=== PATIENT | female | born 1965 | race Caucasian/White ===

== ENCOUNTER 2019-05-26 16:20 | Inpatient (IN) | payer BC ==
[~2019-05-26] VITALS: Ht 152.4 cm; Wt 49.9 kg
[2019-05-26 16:24] VITALS: BP_SYST 108
--- NOTE | 2019-05-26 16:25 | NUR ---
Patient to ER bed 4 to gown for evaluation. Side rails up.
[2019-05-26] MEDS ORDERED: INSULIN REGULAR, HUMAN 10 UNITS/0.1 ML INJ IVP ONE (16:30)
[2019-05-26] MEDS ORDERED: NACL 0.9% 2,000 ML IV ONE (16:30)
--- NOTE | 2019-05-26 16:30 | NUR ---
PT CAME TO ER WITH HYPERGLYCEMIA. BLOOD GLUCOSE 500 IN FIELD AND 600 UPON ARRIVAL.
--- NOTE | 2019-05-26 16:35 | NUR ---
ER at bedside examining patient.
--- NOTE | 2019-05-26 17:15 | NUR ---
PT IN Tammi[place]UNGIE TOLERATED MEDICATION. AWAITING LAB RESULTS
[2019-05-26 17:30] LABS: BASOPHILS # (AUTO) 0.2 K/uL (0.0-0.2); BASOPHILS % (AUTO) 1.1 % (0.0-2.0); EOSINOPHILS # (AUTO) 0.3 K/uL (0.0-0.4); EOSINOPHILS % (AUTO) 1.8 % (0.0-4.0); HEMATOCRIT 46.7 % (36-48); HEMOGLOBIN 15.6 g/dL (12.0-16.0); LYMPHOCYTES # (AUTO) 1.3 K/uL (1.0-5.5); LYMPHOCYTES % (AUTO) 8.1 % (20.5-51.5); MEAN CORPUSCULAR HEMOGLOBIN 33 pg (27-31); MEAN CORPUSCULAR HGB CONC 34 % (32-36); MEAN CORPUSCULAR VOLUME 98 fL (79.0-98.0); MONOCYTES # (AUTO) 0.3 K/uL (0.0-1.0); MONOCYTES % (AUTO) 1.7 % (1.7-9.3); NEUTROPHILS # (AUTO) 14.3 K/uL (1.8-7.7); NEUTROPHILS % (AUTO) 87.3 % (40.0-70.0); PLATELET COUNT (AUTO) 379 K/uL (130-430); RED BLOOD CELL COUNT(AUTO) 4.78 MIL/uL (4.2-6.2); RED CELL DISTRIBUTION WIDTH 13.1 % (9.0-15.0); WHITE BLOOD COUNT (AUTO) 16.4 K/uL (4.8-10.8)
[2019-05-26 17:56] LABS: ALANINE AMINOTRANSFERASE 18 U/L (12-78); ALBUMIN 3.6 g/dL (3.4-4.8); ANION GAP 33 (5-15); ASPARTATE AMINOTRANSFERASE 22 U/L (10-37); CALCIUM 8.7 mg/dL (8.4-11.0); CREATININE 2.09 mg/dL (0.55-1.30); FREE T4 (FREE THYROXINE) 0.7 ng/dl (0.8-1.5); POTASSIUM 3.2 mmol/L (3.5-5.1); SODIUM SERUM 123 mmol/L (136-145); TOTAL BILIRUBIN 0.7 mg/dL (0.0-1.0); UREA NITROGEN, BLOOD 57 mg/dL (8-21)
[2019-05-26 18:03] LABS: CHLORIDE 85 mmol/L (98-107)
[2019-05-26 18:04] LABS: GFR AFRICAN AMERICAN 32 mL/min (>90); GLUCOSE 812 mg/dL (70-99)
[2019-05-26 18:05] LABS: ALCOHOL, BLOOD < 3 mg/dL (<10)
[2019-05-26 18:10] LABS: INR 1.1 (0.8-1.2); PROTHROMBIN TIME 11.4 SECS (9.5-12.5)
[2019-05-26] MEDS ORDERED: LEVOFLOXACIN 500 MG/D5W 100 ML IV ONE (18:15)
[2019-05-26] MEDS ORDERED: POTASSIUM CHLORIDE 40 MEQ in NS 250 ML IV ONE (18:15)
[2019-05-26] MEDS ORDERED: NACL 0.9% 1,000 ML IV ONE (18:15)
[2019-05-26] MEDS ORDERED: POTASSIUM CHLORIDE 20 MEQ/PKT PACKET PO ONE (18:15)
--- NOTE | 2019-05-26 18:30 | NUR ---
PT IN BED WITH FAMILY AT BEDSIDE. VSS STABLE AT THIS TIME.
[2019-05-26 18:31] LABS: ACETONE, SERUM LARGE (NEGATIVE)
[2019-05-26 18:42] LABS: BILIRUBIN,URINE 1+ (NEGATIVE); BLOOD, URINE 2+ (NEGATIVE); COLOR,URINE YELLOW (YELLOW); GLUCOSE,URINE 3+ (NEGATIVE); KETONES,URINE 3+ (NEGATIVE); LEUKOCYTE ESTERASE ,URINE NEGATIVE (NEGATIVE); NITRITE, URINE NEGATIVE (NEGATIVE); PH,URINE 5.5 (5.0-8.0); PROTEIN URINE 2+ (NEGATIVE); UROBILINOGEN,URINE 0.2 (0.2-1.0)
[2019-05-26 18:50] LABS: CLARITY/URINE SLIGHTLY HAZY (CLEAR)
[2019-05-26 18:57] LABS: BARBITURATE, URINE NEGATIVE (NEG <=200); BENZODIAZEPINE, URINE NEGATIVE (NEG <=150); CANNABINOID, URINE NEGATIVE (NEG <=50); COCAINE, URINE NEGATIVE (NEG <=150); METHAMPHETAMINES SCREEN,URINE NEGATIVE (NEG <=500); OPIATE, URINE NEGATIVE (NEG <=100); PHENCYCLIDINE SCREEN,URINE NEGATIVE (NEG <=25); UR TRICYCLIC ANTIDEPRESSANTS NEGATIVE (NEG <=300); URINE AMPHETAMINE NEGATIVE (NEG <=500); URINE METHADONE NEGATIVE (NEG <=200); URINE OXYCODONE SCREEN NEGATIVE (NEG <=100); URINE PROPOXYPHENE SCREEN NEGATIVE (NEG <=300)
[2019-05-26 18:58] LABS: BACTERIA,URINE FEW /HPF (None Seen); COARSE GRANULAR CASTS,URINE 0-10 /LPF (None Seen); FINE GRANULAR CASTS,URINE 0-10 /LPF (None Seen); MUCUS,URINE 1+ /LPF (None Seen); URINE AMORPHOUS URATE 3+ /HPF (None Seen); WBC,URINE 0-3 /HPF (0-3)
--- NOTE | 2019-05-26 19:25 | NUR ---
Patient will be admitted to [facility]. Admitted to ICU unit. Will go to room ICU 2. Belongings list completed. Complete and up to date summary report printed. SBAR report to be given at bedside with opportunity for questions. BEDSIDE REPORT
[2019-05-26] MEDS ORDERED: NACL 0.9% 500 ML IV ONE (19:30)
--- NOTE | 2019-05-26 19:54 | NUR ---
ER ADMISSION Pt admitted to ICU-2 via gurney accompanied by ER ACLS staff, and family. IVF infusing. Pt on RA O2 saturation 99%. IV site present RAC 20ga, started by ER staff, no redness or swelling noted @ site. Skin intact.
[2019-05-26 20:00] VITALS: BP_SYST 110
[2019-05-26] MEDS ORDERED: INSULIN REGULAR, HUMAN 100 UNITS in NS 99 ML IV PRN ×2 (20:34)
[2019-05-26] MEDS ORDERED: DEXTROSE 50% JECT 50 ML DISP.SYRIN IVP PRN ×2 (20:45)
--- NOTE | 2019-05-26 20:45 | NUR ---
IV PLACEMENT: # 20 gauge angiocath placed to right forearm. Use of asceptic technique. Opsite placed over site. Blood return noted. Flushed with 5 cc of normal saline. No evidence of infiltration noted. Patient tolerated well.
[2019-05-26 21:00] VITALS: BP_SYST 105
[2019-05-26] MEDS ORDERED: NACL 0.9% 1,000 ML IV SCH (21:45)
[2019-05-26] MEDS ORDERED: THIAMINE HCL 100 MG in NS 50 ML IV ONE (21:45)
[2019-05-26] MEDS ORDERED: LORazepam 2 MG/ML VIAL IVP PRN (21:45)
[2019-05-26 22:00] VITALS: BP_SYST 118
[2019-05-26] MEDS ORDERED: ACETAMINOPHEN 325 MG TABLET PO PRN (22:00)
[2019-05-26] MEDS ORDERED: ONDANSETRON HCL 4 MG/2 ML VIAL IVP PRN (22:15)
--- NOTE | 2019-05-26 22:30 | NUR ---
COLLINS CATH: # 16 FR Collins catheter with 10 cc bulb inserted with use of sterile technique. Bulb inflated with 10 cc sterile water. Immediate return of 50 cc yellow urine noted. Bedside drainage bag placed below level of bladder. Pt tolerated procedure well.
--- NOTE | 2019-05-26 22:30 | NUR ---
DR NIMESH Mendes here evaluating patient.
--- NOTE | 2019-05-26 22:55 | NUR ---
PAGED DR. ROGER'S EXCHANGE DR. LOZANO EQUIPMENT SERVICE LEAD [phone] SPOKE WITH MOUNA
[2019-05-26 23:00] VITALS: BP_SYST 112
[2019-05-26 23:30] LABS: CHLORIDE 106 mmol/L (98-107); CREATININE 1.27 mg/dL (0.55-1.30); GLUCOSE 355 mg/dL (70-99); POTASSIUM 3.5 mmol/L (3.5-5.1); SODIUM SERUM 136 mmol/L (136-145); UREA NITROGEN, BLOOD 46 mg/dL (8-21)
[2019-05-26] MEDS ORDERED: LR 1,000 ML IV SCH (23:30)
[2019-05-26 23:44] LABS: ACETONE, SERUM MODERATE (NEGATIVE)
[2019-05-26 23:46] LABS: ANION GAP 25 (5-15)
[2019-05-27] VITALS (24 sets, daily range): BP systolic 88–130
[2019-05-27] LABS: CALCIUM 6.8 mg/dL (8.4-11.0)
[2019-05-27] MEDS ORDERED: THIAMINE HCL 100 MG/ML VIAL ONE (00:18)
--- NOTE | 2019-05-27 00:22 | NUR ---
MD TOLU BEAVERS'S EXCHANGE [phone] SPOKE TO MELITA
[2019-05-27] MEDS ORDERED: SODIUM BICARBONATE 8.4% JECT 100 MEQ in D5W 1,000 ML IV SCH (00:30)
[2019-05-27] MEDS ORDERED: POTASSIUM CHLORIDE 20 MEQ TAB.PRT.SR PO ONE (00:30)
[2019-05-27] MEDS ORDERED: INSULIN REGULAR, HUMAN 100 UNITS in NS 99 ML IV PRN ×4 (00:31→11:45)
[2019-05-27] MEDS ORDERED: cefTRIAXone 1 GM IVPB PREMIX 50 ML IV ONE (00:38)
--- NOTE | 2019-05-27 01:00 | NUR ---
Received patient after report from Amena SALDAÑA charge. Patient resting with eyes closed but responding to verbal commands. Finger stick Q 1 hr, patient compliant with treatment. IV fluids and insulin drip infusing to peripheral IV; no signs of infiltration noted. will continue to monitor as per MD orders.
[2019-05-27] MEDS ORDERED: SODIUM BICARBONATE 8.4% JECT 50 MEQ/50 ML SYRINGE ONE (01:07)
[2019-05-27] MEDS: cefTRIAXone 1 GM in D5W 50 ML IV SCH ×2 (02:00→21:05)
[2019-05-27] MEDS: LR 1,000 ML IV SCH ×2 (02:24→06:16)
[2019-05-27] MEDS: CALCIUM CARBONATE 500 MG/ TAB.CHEW PO SCH ×4 (02:29→20:52)
[2019-05-27] MEDS: CHOLECALCIFEROL (VITAMIN D3) 2,000 UNIT TABLET PO SCH ×2 (02:31→09:03)
[2019-05-27 05:28] LABS: BASOPHILS % (AUTO) 0.3 % (0.0-2.0); EOSINOPHILS % (AUTO) 0.1 % (0.0-4.0); HEMOGLOBIN 13.1 g/dL (12.0-16.0); LYMPHOCYTES # (AUTO) 1.8 K/uL (1.0-5.5); LYMPHOCYTES % (AUTO) 18.4 % (20.5-51.5); MEAN CORPUSCULAR HEMOGLOBIN 33 pg (27-31); MEAN CORPUSCULAR HGB CONC 35 % (32-36); MEAN CORPUSCULAR VOLUME 92 fL (79.0-98.0); MONOCYTES # (AUTO) 1.2 K/uL (0.0-1.0); MONOCYTES % (AUTO) 12.1 % (1.7-9.3); NEUTROPHILS # (AUTO) 6.8 K/uL (1.8-7.7); NEUTROPHILS % (AUTO) 69.1 % (40.0-70.0); PLATELET COUNT (AUTO) 224 K/uL (130-430); RED BLOOD CELL COUNT(AUTO) 4.02 MIL/uL (4.2-6.2); RED CELL DISTRIBUTION WIDTH 12.9 % (9.0-15.0); WHITE BLOOD COUNT (AUTO) 9.8 K/uL (4.8-10.8)
[2019-05-27 05:44] LABS: ALANINE AMINOTRANSFERASE 16 U/L (12-78); ALBUMIN 2.9 g/dL (3.4-4.8); ANION GAP 20 (5-15); ASPARTATE AMINOTRANSFERASE 20 U/L (10-37); CALCIUM 7.7 mg/dL (8.4-11.0); CHLORIDE 103 mmol/L (98-107); CHOLESTEROL 115 mg/dL (<200); CREATININE 1.12 mg/dL (0.55-1.30); GLUCOSE 187 mg/dL (70-99); HDL CHOLESTEROL 35 mg/dL (>55); LDL CHOLESTEROL 46 mg/dL (<100); LIPASE 1005 U/L (73-393); POTASSIUM 3.2 mmol/L (3.5-5.1); SODIUM SERUM 135 mmol/L (136-145); TOTAL BILIRUBIN 0.4 mg/dL (0.0-1.0); TRIGLYCERIDES 123 mg/dL (30-150); UREA NITROGEN, BLOOD 36 mg/dL (8-21)
[2019-05-27 05:47] LABS: GFR AFRICAN AMERICAN 65 mL/min (>90)
[2019-05-27 05:48] LABS: PHOSPHORUS 0.4 mg/dL (2.7-4.5)
[2019-05-27 06:03] LABS: ACETONE, SERUM SMALL (NEGATIVE)
--- NOTE | 2019-05-27 06:53 | NUR ---
FAMILY INFORMATION Daughter wanted to leave cell phone information: Eli Ortiz
[2019-05-27] MEDS ORDERED: K PHOS 30 MM in NS 250 ML IV ONE (07:15)
--- NOTE | 2019-05-27 07:40 | NUR ---
AM ASSESSMENT Pt received from night RN using SBAR. Pt resting in bed with eyes closed. pt is easily awaken to light tactile stimuli. Vital signs stable. Insulin drip @ 3 unit/hr. Galvan cath draining light yellow urine to gravity. No complaints of pain at this time.
--- NOTE | 2019-05-27 08:20 | NUR ---
ECHO master certified rv technician at bedside with pt
--- NOTE | 2019-05-27 08:25 | NUR ---
MD Dr. Amaro at bedside with pt.
[2019-05-27] MEDS ORDERED: chlordiazePOXIDE HCL 25 MG CAPSULE PO SCH ×2 (09:00→11:30)
[2019-05-27] MEDS: MULTIVITS,CA,MINERALS/IRON/FA 1 TABLET PO SCH (09:03)
[2019-05-27] MEDS: FOLIC ACID 1 MG TABLET PO SCH (09:03)
[2019-05-27] MEDS: THIAMINE HCL 100 MG TABLET PO SCH (09:04)
--- NOTE | 2019-05-27 09:09 | NUR ---
Nutrition Update Charanjit Scale 18 noted. Pt admitted for DKA. Diet: clear liquid, CCHO standard carb-60 gm BMI: 21.5 kg/m2 RD to follow per nutrition care standards.
[2019-05-27] MEDS: NICOTINE 21 MG/24 HR PATCH.TD24 TD SCH (10:20)
--- NOTE | 2019-05-27 10:20 | NUR ---
Nicotine Patch Nicotine patch placed to pt Right upper arm.
--- NOTE | 2019-05-27 10:30 | NUR ---
Ultrasound Pt and pt's sister informed that ultrasound will be bedside approximately [id number], and to keep pt NPO.
--- NOTE | 2019-05-27 10:31 | NUR ---
Called Dr. Vieira with a consult, spoke with Dorinda from doctors office
[2019-05-27] MEDS ORDERED: SODIUM BICARBONATE 8.4% JECT 50 MEQ in D5W 1,000 ML IV SCH (11:45)
--- NOTE | 2019-05-27 11:48 | NUR ---
Witnessed insulin drip being titrated to 2 units per hour on the pump.
[2019-05-27] MEDS: KCL 20 mEq in 0.45% NS 1000 mL 1,000 ML IV SCH ×2 (12:29→20:53)
[2019-05-27] MEDS: NAPH,MB-DB/K PH,MBDB 250 MG TAB PO SCH ×3 (12:30→20:52)
--- NOTE | 2019-05-27 13:36 | NUR ---
Witnessed insulin drip decreased to 1unit /hr on pump.
--- NOTE | 2019-05-27 14:25 | NUR ---
Witnessed insulin drip titrated up to 3u/hr
[2019-05-27 15:38] LABS: CALCIUM 7.8 mg/dL (8.4-11.0); CREATININE 0.86 mg/dL (0.55-1.30); PHOSPHORUS 2.4 mg/dL (2.7-4.5); POTASSIUM 3.5 mmol/L (3.5-5.1)
--- NOTE | 2019-05-27 16:50 | NUR ---
CHG Pt provided CHG with linen change. Pt tolerated well. Will continue to monitor.
--- NOTE | 2019-05-27 17:40 | NUR ---
Witness Witnessed Bsii SALDAÑA adjusting Insulin Drip to 2units / hr
--- NOTE | 2019-05-27 18:30 | NUR ---
Witnessed insulin drip infusing at 4units/hr on the pump.
--- NOTE | 2019-05-27 19:19 | NUR ---
Report Report given to Night RN using SBAR.
--- NOTE | 2019-05-27 19:36 | NUR ---
Opening Note: Patient received via SBAR, laying in supine position, with HOB in upright, in lowest setting to the floor, with call light on the bed. Patient's vitals are within normal limits. Will continue to monitor.
--- NOTE | 2019-05-27 19:45 | NUR ---
WITNESS Witnessed PIPER Mad[place] titrate Insulin drip from 4units/hr to 3units/hr.
[2019-05-27] MEDS ORDERED: FLU VACC QS2019-20 36MOS UP/PF 60 MCG/0.5 ML SYRINGE I.M. PRN (20:00)
[2019-05-27] MEDS: chlordiazePOXIDE HCL 25 MG CAPSULE PO SCH (20:52)
[2019-05-27 21:44] LABS: CALCIUM 7.3 mg/dL (8.4-11.0); CREATININE 0.72 mg/dL (0.55-1.30)
[2019-05-27 21:55] LABS: POTASSIUM 2.4 mmol/L (3.5-5.1)
[2019-05-27 22:02] LABS: PHOSPHORUS 0.9 mg/dL (2.7-4.5)
[2019-05-27] MEDS ORDERED: INSULIN GLARGINE 100 UNITS/ML 10 ML VIAL SUBCUT SCH (22:30)
[2019-05-27] MEDS ORDERED: POTASSIUM CHLORIDE 20 MEQ/PKT PACKET PO ONE (22:30)
[2019-05-27] MEDS ORDERED: KCL 20 mEq in 100 mL (PREMIX) 100 ML IV ONE (23:00)
[2019-05-27] MEDS ORDERED: KCL 20 mEq in 100 mL (PREMIX) 200 ML IV ONE (23:19)
[2019-05-27] MEDS: KCL 20 mEq in 100 mL (PREMIX) 100 ML IV SCH (23:51)
[2019-05-28] VITALS (21 sets, daily range): BP systolic 86–124
[2019-05-28] MEDS ORDERED: INSULIN REGULAR, HUMAN 100 UNITS in NS 99 ML IV PRN ×2 (00:31)
[2019-05-28] MEDS: KCL 20 mEq in 100 mL (PREMIX) 100 ML IV SCH ×2 (00:51→00:58)
--- NOTE | 2019-05-28 02:01 | NUR ---
Low Potassium: 2.4 (2) K-Riders, 20mEq Potassium in 100mL-NS Given per Dr. Vieira Orders, for a total of 40mEq given. Will follow up and get orders for another 40 mEq P.O.
[2019-05-28] MEDS ORDERED: POTASSIUM CHLORIDE 20 MEQ/PKT PACKET PO ONE (03:00)
[2019-05-28] MEDS: KCL 20 mEq in 0.45% NS 1000 mL 1,000 ML IV SCH ×3 (03:46→17:24)
[2019-05-28 05:59] LABS: BASOPHILS # (AUTO) 0.1 K/uL (0.0-0.2); BASOPHILS % (AUTO) 0.8 % (0.0-2.0); EOSINOPHILS % (AUTO) 0.5 % (0.0-4.0); HEMATOCRIT 31.8 % (36-48); HEMOGLOBIN 11.5 g/dL (12.0-16.0); LYMPHOCYTES # (AUTO) 2.8 K/uL (1.0-5.5); LYMPHOCYTES % (AUTO) 40.2 % (20.5-51.5); MEAN CORPUSCULAR HEMOGLOBIN 33 pg (27-31); MEAN CORPUSCULAR HGB CONC 36 % (32-36); MEAN CORPUSCULAR VOLUME 90 fL (79.0-98.0); MONOCYTES # (AUTO) 0.8 K/uL (0.0-1.0); MONOCYTES % (AUTO) 11.1 % (1.7-9.3); NEUTROPHILS # (AUTO) 3.3 K/uL (1.8-7.7); NEUTROPHILS % (AUTO) 47.4 % (40.0-70.0); PLATELET COUNT (AUTO) 179 K/uL (130-430); RED BLOOD CELL COUNT(AUTO) 3.52 MIL/uL (4.2-6.2); RED CELL DISTRIBUTION WIDTH 13.2 % (9.0-15.0); WHITE BLOOD COUNT (AUTO) 6.9 K/uL (4.8-10.8)
[2019-05-28 06:17] LABS: ALBUMIN 2.4 g/dL (3.4-4.8); CREATININE 0.48 mg/dL (0.55-1.30); POTASSIUM 3.8 mmol/L (3.5-5.1); THYROID STIMULATING HORMONE 1.7 uIu/mL (0.36-3.74); TOTAL BILIRUBIN 0.4 mg/dL (0.0-1.0)
--- NOTE | 2019-05-28 06:21 | NUR ---
Dr Joseph Visit: Dr Joseph visited with the patient. suggests rehab center when patient is stable for discharge.
[2019-05-28] MEDS: INSULIN LISPRO SLIDING SCALE 100 UNITS/ML VIAL (humaLOG) SUBCUT PRN ×3 (06:30→21:34)
[2019-05-28 07:05] LABS: PHOSPHORUS 1.1 mg/dL (2.7-4.5)
--- NOTE | 2019-05-28 07:14 | NUR ---
Closing Note: Patient received by day shift RN via SBAR. Patient supine in bed, with HOB upright, with bed frame in lowest position, with call light on the bed. Patients vital signs are within normal limits. Day RN will continue to monitor.
[2019-05-28] MEDS ORDERED: INSULIN GLARGINE 100 UNITS/ML 10 ML VIAL SUBCUT ONE (07:45)
[2019-05-28] MEDS ORDERED: MAGNESIUM SULFATE IV ONE (07:45)
[2019-05-28] MEDS ORDERED: MAGNESIUM SULFATE 1 GM in NS 100 ML IV ONE (07:45)
[2019-05-28] MEDS ORDERED: NACL 0.45% IV ONE (07:45)
--- NOTE | 2019-05-28 08:08 | NUR ---
[facility] Marce called from [facility] inquiring regarding pts desires to enter [facility] for detoxification / rehabilitation. I asked pt what she would like to do, pt stated "not at this time, but may consider later", but "wants to go home after the hospital". Informed Marce acosta RN at [facility] .
[2019-05-28] MEDS: FOLIC ACID 1 MG TABLET PO SCH (08:25)
[2019-05-28] MEDS: THIAMINE HCL 100 MG TABLET PO SCH (08:25)
[2019-05-28] MEDS: chlordiazePOXIDE HCL 25 MG CAPSULE PO SCH ×2 (08:25→21:16)
[2019-05-28] MEDS: CHOLECALCIFEROL (VITAMIN D3) 2,000 UNIT TABLET PO SCH (08:25)
[2019-05-28] MEDS: NAPH,MB-DB/K PH,MBDB 250 MG TAB PO SCH ×4 (08:25→21:16)
[2019-05-28] MEDS: MULTIVITS,CA,MINERALS/IRON/FA 1 TABLET PO SCH (08:25)
[2019-05-28] MEDS: NICOTINE 21 MG/24 HR PATCH.TD24 TD SCH (08:25)
--- NOTE | 2019-05-28 08:30 | NUR ---
magnesiu level 1.3, MD Vieira order mg rider. 1 gm. started.iv acces patent. no swelling noted.
--- NOTE | 2019-05-28 10:30 | NUR ---
CHG / Education Pt provided CHG with total linen change. Pt tolerated well. Will continue to monitor. Pt education provided regarding negron catheter.
[2019-05-28] MEDS: CALCIUM CARBONATE 500 MG/ TAB.CHEW PO SCH ×3 (10:56→21:16)
--- NOTE | 2019-05-28 14:28 | NUR ---
Dietitian Recommendations * Recommend CCHO, cardiac diet LP, RD Please refer to Nutrition Assessment for details. Addendum: 05/28/19 at [address] Amended: Links added.
[2019-05-28] MEDS ORDERED: NA PHOS 15 MM in NS 250 ML IV ONE (14:30)
--- NOTE | 2019-05-28 15:16 | NUR ---
Elevator Repairer Apprentice Met with pt. to conduct a social work interview GENERATOR WORKER met with pt. who was sitting upright in her ICU bed #2. Pt. was awake and agreed to the interview. Pt. was eating and drinking from her lunch tray. As she spoke, her speech was slow. She later apoligized for using a slurred speech. Pt. stated she is feeling much better. She said her drinking has been a topic of conversation. She lives at home with her and her daugther. Her son in away in the [employer]. Her family tells her that her drinking is a problem, she drinks too much and they are worried about her. Pt. stated ," If the doctor says my drinking is a problem, then it must be". Pt. then said she does not feel her drinking is a problem. She admits to drinking 7 & 7, but stated in the past week and a half she has not had a drink. She said perhaps the alcohol was still in her system, but she has not had anything to drink for days. The last time she was sober was for a period of 4-5 months. GENERATOR WORKER asked her what are her triggers. Pt. stated she just wants to get drunk. When she had stopped drinking she had gone running to get some exercise. She did stated she was not wililng to go to [facility] and feels she does not have a problem. GENERATOR WORKER shared with pt. some substance abuse resources. Pt. stated she has been to AA many times and knows the process to access services. Pt. stated she feels fortunate to have her family as a support system. She stated she was willing to give the AA program another try. GENERATOR WORKER will remain available as needed.
--- NOTE | 2019-05-28 15:19 | NUR ---
patient coughing. informed MD lopez telephone ordered received. noted.
--- NOTE | 2019-05-28 15:31 | NUR ---
patient had large bowel movement soft ( dark) good darin care provided.
--- NOTE | 2019-05-28 16:06 | NUR ---
Social Service Note: LIFE CLAIMS EXAMINER received order from physician for [facility]. LIFE CLAIMS EXAMINER reviewed pt's chart and spoke to ADMINISTRATION VICE PRESIDENT; per charge nurse in bed huddle pt does not want to go to [facility]. LIFE CLAIMS EXAMINER spoke with ADMINISTRATION VICE PRESIDENT who also stated that after conversation with pt, pt does not want to go to [facility]. Pt is not currently on a 5150 that would require her to be transferred to [facility]. Ham Facer will remain available for support and will follow up as needed.
[2019-05-28] MEDS: PROMETHAZINE-DM 6.25 MG-15 MG/5 ML UDC PO PRN ×2 (17:12→21:17)
--- NOTE | 2019-05-28 17:55 | NUR ---
TRANSFER NOTES: telephone report given to SHANNAN RN. patient stable condition, no distress. on room air saturation 99% afebrile. vital sign stable, transferred to room 119 B. belongings sent with patient 2 gallon of cranberry juice brought by family. cellphone with slot floor supervisor, clothes ( shirt and undergarment black).all needs mets.
--- NOTE | 2019-05-28 18:00 | NUR ---
Patient received report from Tosha RN, patient is a/ox4, denies pain, vital signs taken, set up patient to eat dinner, aspiration precautions in place, family is at the bedside, educated the patient and family gambling monitor light system, they verbalized understanding, Iv lines is patent and infusing well, SCD's in place, bed in lowest position, three side rails up, call light placed within reach, fall and aspiration precautions in place.
--- NOTE | 2019-05-28 18:28 | NUR ---
Closing note patient resting in bed, awake, denies pain, family at bedside, no complaints, all needs met, will endorse report to NOC shift nurse, bed in lowest position, three side rails up, call light is within reach, fall and aspiration precautions in place.
--- NOTE | 2019-05-28 19:15 | NUR ---
change of shift.pt.had requested assistance w/the bedpan.robe day shift had placed pt.upon the bedpan.i have assisted the pt. w/the bedpan post elimination.i have attended to the pt.cleaned.pt.presents general status stable.respiratory status stable:cough present.pt.presents iv acces intact patent iv fluids infiosngd.pt.prws to oo op2 @room air.call light/telephone w/in reach of the pt.
--- NOTE | 2019-05-28 20:00 | NUR ---
pt.assessed.v/s assessed;values w/in normal limits.no c/o pain,nausea.iv acces intact patent iv fluids infusing.pt.presents negron cath;in intact patent urine content present.pt presents cough;to review emar med-list for cough medication.i have apprised the pt.that i may provide snacks/beverages w/in the shift.pt.requested juice.i have provided apple juice.pt.assessed for cleanliness.pt.repositioned.general status stable.respiratory status stable;02-sat%=98%.call light/telephone placed w/in reach of the pt.
[2019-05-28] MEDS ORDERED: INSULIN GLARGINE 100 UNITS/ML 10 ML VIAL SUBCUT SCH (21:00)
--- NOTE | 2019-05-28 21:00 | NUR ---
2100p medications administer.pt.capable to ingest the medication whole.pt.presents cough.i have administered; phenergan dm:10ml po.to re-assess the efficacy of the medication.no requests posited@this hour.
[2019-05-28] MEDS: cefTRIAXone 1 GM in D5W 50 ML IV SCH (21:16)
[2019-05-28] MEDS: TEMAZEPAM 15 MG CAPSULE PO PRN (21:37)
--- NOTE | 2019-05-28 22:00 | NUR ---
pt.assessed.pt.presents quiescent affect;calm,somnolent.pt.assessed for cleanliness.pt.repositioned.general status stable, respiratory status stable;o2-sat%=98%.call light/telephone placed w/in reach of the pt.
[2019-05-29] VITALS: BP_SYST 105
--- NOTE | 2019-05-29 | NUR ---
pt.assessed.v/s assessed.values w/in normal limits.no c/o pain,nausea.i have assessed the pt.for cleanliness.pt.repositioned. iv access intact patent iv fluids infusing.negron cath intact patent urine content present i have attended to the negron cath; measured/emptied.general status stable.respiratory status stable.02-sat%=98%.call light/telephone placed w/in reach of the pt.
--- NOTE | 2019-05-29 01:00 | NUR ---
pt.presents cough.i have administered phenergan dm:10ml.to re-assess the efficacy of the medication.no additional requsts posited this hour.
[2019-05-29] MEDS: PROMETHAZINE-DM 6.25 MG-15 MG/5 ML UDC PO PRN ×4 (01:04→22:06)
--- NOTE | 2019-05-29 02:00 | NUR ---
pt.assessed.pt.presents quiescent affect;calm,somnolent.i have assessed the pt.for cleanliness.pt.repositioned.iv access intact patent iv fluids infusing. negron cath intact patent urine content present.general status stable.respiratory status stable.02-sat%=98%.call light/ telephoneplaced w/in reach of the pt.
[2019-05-29] MEDS: KCL 20 mEq in 0.45% NS 1000 mL 1,000 ML IV SCH ×3 (03:24→21:52)
--- NOTE | 2019-05-29 03:30 | NUR ---
pt.presents restless affect;i have administered ativan;1mg ivp.to re-assess the efficacy of the medication.
--- NOTE | 2019-05-29 04:00 | NUR ---
pt.assessed.pt.presents quiescent affect;calm,somnolent.re-assess post administration;ativan 1mg ivp.pt.assessed for cleanliness.pt.repositioned. iv access intact;patent;iv fluids infusing.negron cath intact patent urine content present.call light/telephone placed w/in reach of the pt.
[2019-05-29 06:02] LABS: ALBUMIN 2.5 g/dL (3.4-4.8); CALCIUM 7.2 mg/dL (8.4-11.0); CREATININE 0.47 mg/dL (0.55-1.30); PHOSPHORUS 2.6 mg/dL (2.7-4.5); POTASSIUM 3.2 mmol/L (3.5-5.1); TOTAL BILIRUBIN 0.3 mg/dL (0.0-1.0)
[2019-05-29 06:34] LABS: BASOPHILS % (AUTO) 0.6 % (0.0-2.0); EOSINOPHILS % (AUTO) 0.3 % (0.0-4.0); HEMATOCRIT 34.6 % (36-48); HEMOGLOBIN 12.1 g/dL (12.0-16.0); LYMPHOCYTES # (AUTO) 1.7 K/uL (1.0-5.5); LYMPHOCYTES % (AUTO) 29.4 % (20.5-51.5); MEAN CORPUSCULAR HEMOGLOBIN 33 pg (27-31); MEAN CORPUSCULAR HGB CONC 35 % (32-36); MEAN CORPUSCULAR VOLUME 93 fL (79.0-98.0); MONOCYTES # (AUTO) 0.5 K/uL (0.0-1.0); MONOCYTES % (AUTO) 8.1 % (1.7-9.3); NEUTROPHILS # (AUTO) 3.5 K/uL (1.8-7.7); NEUTROPHILS % (AUTO) 61.6 % (40.0-70.0); PLATELET COUNT (AUTO) 183 K/uL (130-430); RED BLOOD CELL COUNT(AUTO) 3.71 MIL/uL (4.2-6.2); RED CELL DISTRIBUTION WIDTH 13.6 % (9.0-15.0); WHITE BLOOD COUNT (AUTO) 5.7 K/uL (4.8-10.8)
[2019-05-29] MEDS: INSULIN Lispro 100 UNITS/ML VIAL (humaLOG) SUBCUT SCH ×3 (06:45→18:00)
[2019-05-29] MEDS: INSULIN GLARGINE 100 UNITS/ML 10 ML VIAL SUBCUT SCH (06:49)
[2019-05-29] MEDS: INSULIN LISPRO SLIDING SCALE 100 UNITS/ML VIAL (humaLOG) SUBCUT PRN ×3 (06:50→21:51)
--- NOTE | 2019-05-29 06:55 | NUR ---
pt.asseSSEd.bloOd glucose assessed;value;241mg/dl.i have administered humalog;3-units scheduled o7ooa dose.i have administered lantus;20-UNITS SCHEDULeD DOSE 0700A .I HAVe ADMINISTeRed INSULIN HuMALOG;4-UNITS PER THE SLIDING SCaLe PARAMETers.PT ASsesseD FOR CLEANLINESS.PT REPOsitioNED.I HAVE ATTENDED TO COLLINS CATH;MEASURED/EMPTIED.IV ACCESS INTACT PATENT IV FLUIDS INFUSING.CALL LIGHT/TELePHOne PLACED W/IN REACH OF THE PT.
--- NOTE | 2019-05-29 07:35 | NUR ---
INITIAL NOTE PT RESTING IN BED QUIETLY, ON ROOM AIR. IVF INFUSING WELL. CALL LIGHT WITHIN REACH, BED IN LOW AND LOCKED POSITION WITH BED ALARM ON.
[2019-05-29 08:00] VITALS: BP_SYST 105
[2019-05-29] MEDS: NAPH,MB-DB/K PH,MBDB 250 MG TAB PO SCH ×5 (08:30→21:42)
--- NOTE | 2019-05-29 08:40 | NUR ---
DR. PACK SPOKE WITH MD AT NURSES STATION. INFORMED PT K 3.2. PT IS RESTING BUT WILL RESPOND WHEN WOKEN UP. PT REFUSED TO EAT BREAK FAST THIS MORNING. TO PUT IN NEW ORDERS
[2019-05-29] MEDS ORDERED: POTASSIUM CHLORIDE 20 MEQ/PKT PACKET PO ONE (08:45)
[2019-05-29] MEDS: CHOLECALCIFEROL (VITAMIN D3) 2,000 UNIT TABLET PO SCH ×2 (09:00→09:23)
[2019-05-29] MEDS: MULTIVITS,CA,MINERALS/IRON/FA 1 TABLET PO SCH ×2 (09:00→09:23)
[2019-05-29] MEDS: CALCIUM CARBONATE 500 MG/ TAB.CHEW PO SCH ×4 (09:00→21:42)
[2019-05-29] MEDS: THIAMINE HCL 100 MG TABLET PO SCH ×2 (09:00→09:23)
[2019-05-29] MEDS: FOLIC ACID 1 MG TABLET PO SCH ×2 (09:00→09:22)
[2019-05-29] MEDS: chlordiazePOXIDE HCL 25 MG CAPSULE PO SCH (09:22)
[2019-05-29] MEDS: NICOTINE 21 MG/24 HR PATCH.TD24 TD SCH (09:22)
--- NOTE | 2019-05-29 10:40 | NUR ---
RN ROUNDS ATTEMPTED TO OFFER PT FOOD, PT OPENED HER EYES AND RESPONDED WITH "NO." WILL REATTEMPT AGAIN LATER.
--- NOTE | 2019-05-29 11:21 | NUR ---
BSG 96 ROUSED PT AWAKE TO TAKE BSG. PT OPENED EYES AND ALLOWED FOR BSG TO BE TAKEN. NO INSULIN COVERAGE NEEDED, SCHEDULED LISPRO WAS NOT ADMINISTERED PER MD INSTRUCTIONS HOLD SCHEDULED 3 UNITS OF LISPRO IF BSG IS BELOW 100. ASKED PT IF SHE WOULD LIKE TO EAT SOMETHING, PT REFUSED. WILL REATTEMPT AGAIN LATER.
[2019-05-29] MEDS ORDERED: IPRATROPIUM/ALBUTEROL SULFATE 3 ML AMPUL.NEB (DUONEB) INH PRN (11:45)
[2019-05-29] MEDS ORDERED: POTASSIUM CHLORIDE 20 MEQ TAB.PRT.SR PO ONE (11:45)
[2019-05-29 12:35] VITALS: BP_SYST 101
[2019-05-29] MEDS: LORazepam 2 MG/ML VIAL IVP PRN ×2 (13:30→20:10)
[2019-05-29] MEDS: POTASSIUM CHLORIDE 20 MEQ TAB.PRT.SR PO SCH ×2 (13:34→21:43)
--- NOTE | 2019-05-29 13:50 | NUR ---
RN ROUNDS PT AWAKE TRYING TO GET OUT OF BED. PT CONFUSED. PT TRYING TO GET OUT OF BED TO PEE. EDUCATED PT THAT SHE HAS A COLLINS CATHETER. PT CONFUSED AND UNABLE TO VERBALIZE UNDERSTANDING. REPOSITIONED PT BACK INTO BED. PT DRANK POTASSIUM PKTS WITH WATER.
[2019-05-29] MEDS: IPRATROPIUM/ALBUTEROL SULFATE 3 ML AMPUL.NEB (DUONEB) INH SCH (15:00)
--- NOTE | 2019-05-29 15:50 | NUR ---
RN ROUNDS PT RESTING QUIETLY, PAIN CONTROLLED AT THIS TIME. AT BEDSIDE. PT REMAINS ON BIPAP, TOLERATING WELL. Addendum: 05/29/19 at 1607 by Camille Patton RN WRONG PT ENTRY, DISREGARD
--- NOTE | 2019-05-29 16:00 | NUR ---
BRP W/ ASSIST PT COMPLAINING OF STOMACH PAIN, STATING SHE NEEDS TO HAVE A BOWEL MOVEMENT. ASSISTED PT WITH HELP OF CHAYA CARRERO TO RESTROOM. PT HAD NO BOWEL MOVEMENT. ASSISTED PT BACK INTO BED.
[2019-05-29 16:23] VITALS: BP_SYST 102
--- NOTE | 2019-05-29 17:30 | NUR ---
BSG 195 INSULIN COVERAGE ADMINISTERED AND SCHEDULED INSULIN ADMINISTERED. PT FAMILY AT BEDSIDE FEEDING PT FOOD FROM HOME.
--- NOTE | 2019-05-29 18:48 | NUR ---
CLOSING NOTE PT RESTING QUIETLY IN BED. IVF INFUSING WELL. FAMILY AT BEDSIDE. CALL LIGHT WITHIN REACH, BED IN LOW AND LOCKED POSITION WITH BED ALARM ON. SCD'S IN PLACE. COLLINS DRAINING TO GRAVITY. ALL NEEDS MET THROUGHOUT SHIFT. WILL CONTINUE TO MONITOR UNTIL PT CARE IS ENDORSED TO SQL DEVELOPER RN.
[2019-05-29 19:45] VITALS: BP_SYST 116
--- NOTE | 2019-05-29 19:45 | NUR ---
INITIAL NOTE AT INITIAL ASSESSMENT, PATIENT IS RESTING IN BED, STABLE, NO SIGNS OF RESPIRATORY DISTRESS. PATIENT VERBALIZES NO PAIN. PLAN OF CARE FOR THE EVENING IS COMMUNICATED WITH THE PATIENT. SHE IS UNABLE TO DEMONSTRATE CORRECT USAGE CALL LIGHT AT THIS TIME DUE TO COGNITIVE IMPAIRMENT. BED IS LOCKED, ALARMED, AND AT THE LOWEST LEVEL. FALL, SAFETY, ASPIRATION AND RESPIRATORY PRECAUTIONS WILL BE TAKEN THROUGHOUT THE SHIFT.
--- NOTE | 2019-05-29 20:20 | NUR ---
PATIENT ANXIOUS PATIENT IS VERY ANXIOUS AT THIS TIME, SHE KEEPS TRYING TO CLIMB OUT OF BED ALTHOUGH SHE IS NOT STRONG ENOUGH TO STAND UP ON HER OWN. REORIENTATION EFFORTS ARE UNSUCCESSFUL. PRN MEDICATION FOR ANXIETY AND AGITATION GIVEN AT THIS TIME. SHE IS STABLE, NO SIGNS OF RESPIRATORY DISTRESS. CALL LIGHT WITHIN REACH. BED IS LOCKED, ALARMED, AND AT THE LOWEST LEVEL. WILL CONTINUE TO MONITOR CLOSELY.
[2019-05-29] MEDS: cefTRIAXone 1 GM in D5W 50 ML IV SCH (21:43)
--- NOTE | 2019-05-29 22:20 | NUR ---
NOTE NIGHT TIME MEDICATIONS GIVEN TO PATIENT AT THIS TIME, PRN MEDICATION FOR COUGH ALSO GIVEN AT THIS TIME PER PATIENT REQUEST. PATIENT IS REPOSITIONED INTO BED FOR COMFORT. CALL LIGHT PLACED WITHIN REACH. BED IS LOCKED, ALARMED, AND AT THE LOWEST LEVEL.
--- NOTE | 2019-05-30 00:20 | NUR ---
NOTE PATIENT IS SLEEPING, NO SIGNS OF RESPIRATORY DISTRESS. CALL LIGHT PLACED WITHIN REACH. BED IS LOCKED, ALARMED, AND AT THE LOWEST LEVEL.
[2019-05-30 00:47] VITALS: BP_SYST 114
--- NOTE | 2019-05-30 02:20 | NUR ---
NOTE PATIENT IS SLEEPING, NO SIGNS OF RESPIRATORY DISTRESS. CALL LIGHT PLACED WITHIN REACH. BED IS LOCKED, ALARMED, AND AT THE LOWEST LEVEL.
--- NOTE | 2019-05-30 04:20 | NUR ---
NOTE PATIENT IS SLEEPING, NO SIGNS OF RESPIRATORY DISTRESS. CALL LIGHT PLACED WITHIN REACH. BED IS LOCKED, ALARMED, AND AT THE LOWEST LEVEL.
--- NOTE | 2019-05-30 06:05 | NUR ---
CLOSING NOTE PATIENT SLEPT WELL THROUGHOUT THE NIGHT. AT THIS TIME, SHE IS RESTING IN BED, STABLE, NO SIGNS OF RESPIRATORY DISTRESS. CALL LIGHT PLACED WITHIN REACH. BED IS LOCKED, ALARMED, AND AT THE LOWEST LEVEL. FALL, ASPIRATION, RESPIRATORY AND SAFETY PRECAUTIONS HAVE BEEN IN PLACE THROUGHOUT THE NIGHT. WILL CONTINUE TO MONITOR CLOSELY UNTIL SHIFT REPORT IS GIVEN AT BEDSIDE TO AM NURSE.
[2019-05-30 06:23] LABS: ALANINE AMINOTRANSFERASE 36 U/L (12-78); ALBUMIN 2.6 g/dL (3.4-4.8); ANION GAP 11 (5-15); ASPARTATE AMINOTRANSFERASE 49 U/L (10-37); CALCIUM 7.3 mg/dL (8.4-11.0); CHLORIDE 100 mmol/L (98-107); CHOLESTEROL 120 mg/dL (<200); CREATININE 0.48 mg/dL (0.55-1.30); GLUCOSE 202 mg/dL (70-99); HDL CHOLESTEROL 40 mg/dL (>55); LDL CHOLESTEROL 49 mg/dL (<100); LIPASE 485 U/L (73-393); PHOSPHORUS 3.5 mg/dL (2.7-4.5); POTASSIUM 3.4 mmol/L (3.5-5.1); SODIUM SERUM 133 mmol/L (136-145); TOTAL BILIRUBIN 0.3 mg/dL (0.0-1.0); TRIGLYCERIDES 84 mg/dL (30-150); UREA NITROGEN, BLOOD 6 mg/dL (8-21)
[2019-05-30 06:43] LABS: GFR AFRICAN AMERICAN 173 mL/min (>90)
[2019-05-30] MEDS: INSULIN Lispro 100 UNITS/ML VIAL (humaLOG) SUBCUT SCH ×3 (07:02→17:00)
[2019-05-30] MEDS: INSULIN GLARGINE 100 UNITS/ML 10 ML VIAL SUBCUT SCH (07:03)
[2019-05-30] MEDS: PROMETHAZINE-DM 6.25 MG-15 MG/5 ML UDC PO PRN ×4 (07:04→20:01)
[2019-05-30] MEDS: INSULIN LISPRO SLIDING SCALE 100 UNITS/ML VIAL (humaLOG) SUBCUT PRN ×3 (07:05→20:20)
--- NOTE | 2019-05-30 07:32 | NUR ---
INITIAL NOTE PT AWAKE, PT MORE ALERT THIS MORNING. PT IS WATCHING TV, RECEIVING BREATHING TREATMENT. IVF INFUSING WELL. COLLINS DRAINING TO GRAVITY. CALL LIGHT WITHIN REACH, BED IN LOW AND LOCKED POSITION WITH BED ALARM ON.
[2019-05-30 08:00] VITALS: BP_SYST 116
[2019-05-30] MEDS: NICOTINE 21 MG/24 HR PATCH.TD24 TD SCH (08:09)
[2019-05-30] MEDS: KCL 20 mEq in 0.45% NS 1000 mL 1,000 ML IV SCH (08:09)
[2019-05-30] MEDS: THIAMINE HCL 100 MG TABLET PO SCH (08:10)
[2019-05-30] MEDS: CHOLECALCIFEROL (VITAMIN D3) 2,000 UNIT TABLET PO SCH (08:10)
[2019-05-30] MEDS: MULTIVITS,CA,MINERALS/IRON/FA 1 TABLET PO SCH (08:10)
[2019-05-30] MEDS: NAPH,MB-DB/K PH,MBDB 250 MG TAB PO SCH ×4 (08:10→20:02)
[2019-05-30] MEDS: POTASSIUM CHLORIDE 20 MEQ TAB.PRT.SR PO SCH ×2 (08:10→20:02)
[2019-05-30] MEDS: FOLIC ACID 1 MG TABLET PO SCH (08:10)
[2019-05-30] MEDS: CALCIUM CARBONATE 500 MG/ TAB.CHEW PO SCH ×3 (08:10→20:02)
[2019-05-30 08:27] LABS: ACETONE, SERUM SMALL (NEGATIVE)
[2019-05-30] MEDS: IPRATROPIUM/ALBUTEROL SULFATE 3 ML AMPUL.NEB (DUONEB) INH SCH ×4 (08:35→20:14)
--- NOTE | 2019-05-30 09:30 | NUR ---
RN ROUNDS PT RESTING IN BED, AWAKE, ORIENTED. PT REQUESTING TO NOT HAVE ANY VISITORS TODAY. INFORMED INSTRUCTOR TRAFFIC SAFETY.
[2019-05-30 09:53] VITALS: BP_SYST 114
[2019-05-30] MEDS: LORazepam 2 MG/ML VIAL IVP PRN ×2 (10:33→15:01)
--- NOTE | 2019-05-30 11:30 | NUR ---
RN ROUNDS PT AWAKE, COOPERATIVE. PT ALLOWED SISTER TO VISIT HER. PT DENIES ANY DISCOMFORT AT THIS TIME.
[2019-05-30 13:42] VITALS: BP_SYST 119
[2019-05-30] MEDS ORDERED: INSULIN NPH 100 UNITS/ML 10 ML VIAL SUBCUT ONE (14:15)
[2019-05-30] MEDS ORDERED: POTASSIUM CHLORIDE 20 MEQ/PKT PACKET PO ONE (14:15)
--- NOTE | 2019-05-30 14:15 | NUR ---
DR. PACK/RN ROUNDS MD AT BEDSIDE EXAMINING PT. PT PUT IN NEW ORDERS. ADMINISTERING NEW INSULIN TO PT. PT IS MORE ALERT AND ORIENTED.
[2019-05-30 16:48] VITALS: BP_SYST 100
[2019-05-30] MEDS ORDERED: LORazepam 1 MG TABLET PO PRN (17:15)
--- NOTE | 2019-05-30 17:15 | NUR ---
DR. BEAVERS/RN ROUNDS MD AT BEDSIDE EXAMINING PT. INFORMED MD PT IS REQUESTING PHYSICAL THERAPY AND TO HAVE COLLINS REMOVED. MD TO DC COLLINS, PT EVAL FOR TOMORROW AND CONTINUE WITH ATIVAN.
--- NOTE | 2019-05-30 18:20 | NUR ---
DC COLLINS PT TOLERATED WELL, DENIES ANY PAIN DURING OR AFTER. 200CC OUTPUT, CLEAR AND YELLOW.
--- NOTE | 2019-05-30 18:45 | NUR ---
ASSISTED TO RESTROOM PT AMBULATED WITH ASSIST TO RESTROOM. ONCE DONE PT REQUESTED TO WALK TO WINDOW. PT TOLERATED WELL. ASSISTED PT BACK TO BED. REPOSITIONED FOR COMFORT.
--- NOTE | 2019-05-30 19:52 | NUR ---
CLOSING NOTE PT RESTING IN BED. NO ACUTE DISTRESS NOTED, BREATHING EVEN AND UNLABORED. IVF DISCONTINUE PER MD, IV SALINE LOCKED. CALL LIGHT WITHIN REACH, BED IN LOW AND LOCKED POSITION WITH BED ALARM ON. ALL NEEDS MET THROUGH OUT SHIFT. PT CARE ENDORSED TO LONGITUDINAL FLOAT OPERATOR RNNANCY.
[2019-05-30 19:55] VITALS: BP_SYST 108
--- NOTE | 2019-05-30 19:55 | NUR ---
OPENING NOTES Received report from PIPER Obrien. Patient is resting in bed, awake, alert, oriented x 4, breathing evenly and nonlabored on room air. Patient has an IV on the right AC 20g SL and right forearm 20g SL, patent and benign, no s/s of infection or infiltration at this time. Educated patient on plan of care, fall/safety precautions, patient said "ok," appears to have flight of ideas and inappropriate at times. Bed is locked, armed, and at lowest position, will continue to monitor.
[2019-05-30] MEDS: TEMAZEPAM 15 MG CAPSULE PO PRN (20:02)
--- NOTE | 2019-05-30 20:05 | NUR ---
MEDICATION/ROUNDS Patient is resting in bed, awake, breathing evenly and nonlabored on room air. BS checked, coverage needed. Patient was complaining of persistent cough and asked for cough medication. Patient also requested for medication to help her sleep. Educated patient on cough medication, sleep medication, and due medications, patient said "ok, sure." Administered medications, patient tolerated them well. Assisted patient to and from the bathroom. No other needs at this time, fall/safety precautions. Will continue to monitor patient.
--- NOTE | 2019-05-30 22:20 | NUR ---
Pt got out of bed without calling for assistance and setting off the bed alarm. Pt ambulated to the bathroom and voided large amount of clear yellowish urine. Pt ambulated back to bed with standby assist. Pt's gait was slow and unsteady. Pt was instructed not to get out of bed without calling for assistance to prevent her from falling. Pt verbalized understanding. Call light was given to pt and bed alarm on. Pt's room is across from the Nurses' Station.
--- NOTE | 2019-05-30 22:50 | NUR ---
Pt attempted to get out of bed again without calling for assistance, setting off the bed alarm. Pt was incontinent of urine. Pt was then assisted to the bathroom by her primary RN and pt voided more urine in the toilet. Partial bed linen change done including changing pt's wet gown.
[2019-05-31 00:05] VITALS: BP_SYST 104
[2019-05-31] MEDS: PROMETHAZINE-DM 6.25 MG-15 MG/5 ML UDC PO PRN ×6 (00:10→18:02)
--- NOTE | 2019-05-31 00:10 | NUR ---
MEDICATION FOR AGITATION AND COUGH MEDICATION GIVEN Patient was agitated, educated patient on medication for agitation, patient agreed to have medication. Patient also asked for her cough medication for persistent coughing, educated patient on medication, patient said "yes, I need it." Administered medications, patient cooperated and tolerated them well. Assisted patient to and from the bathroom. No other needs at this time. Fall/safety precautions, will continue to monitor patient.
--- NOTE | 2019-05-31 02:00 | NUR ---
ROUNDS Patient is resting in bed, eyes closed, breathing evenly and nonlabored on room air. No s/s of distress at this time, no other needs at this time, fall/safety precautions. Will continue to monitor patient.
--- NOTE | 2019-05-31 04:10 | NUR ---
COUGH MEDICATION GIVEN Patient is resting in bed, awake, breathing evenly and nonlabored on room air. Assisted patient to and from the bathroom multiple times. Patient requested for cough medication for persistent coughing. Educated patient on medication, patient said "ok." Administered medication, patient tolerated it well. No other needs at this time, fall/safety precautions. Will continue to monitor patient.
--- NOTE | 2019-05-31 06:30 | NUR ---
CLOSING NOTES Patient is resting in bed, awake, breathing evenly and nonlabored on room air. Assisted patient to and from the bathroom. BS checked, coverage needed. Educated patient on due medications, patient said "ok." Administered medications, patient tolerated them well. Needs met throughout the shift. No other needs at this time, fall/safety precautions. Will endorse care to morning shift RN.
[2019-05-31] MEDS: INSULIN GLARGINE 100 UNITS/ML 10 ML VIAL SUBCUT SCH (06:31)
[2019-05-31] MEDS: INSULIN Lispro 100 UNITS/ML VIAL (humaLOG) SUBCUT SCH ×3 (06:32→17:46)
[2019-05-31] MEDS: INSULIN LISPRO SLIDING SCALE 100 UNITS/ML VIAL (humaLOG) SUBCUT PRN ×3 (06:34→20:56)
--- NOTE | 2019-05-31 07:38 | NUR ---
Opening Note received bedside SBAR report from fast food shift lead RN, patient ambulated to bathroom, voided x1, respirations even and unlabored, no acute distress noted, educated patient on use of call light and asked to call for assistance, patient verbalized understanding, call light in reach, educated patient on use of bed alarm for patient safety, patient refusing bed alarm, bed in low and locked position, room close to nurses station.
[2019-05-31 08:00] VITALS: BP_SYST 109
[2019-05-31 08:05] LABS: ANION GAP 13 (5-15); CALCIUM 7.7 mg/dL (8.4-11.0); CHLORIDE 101 mmol/L (98-107); CHOLESTEROL 126 mg/dL (<200); GLUCOSE 271 mg/dL (70-99); HDL CHOLESTEROL 38 mg/dL (>55); LDL CHOLESTEROL 56 mg/dL (<100); LIPASE 831 U/L (73-393); POTASSIUM 3.2 mmol/L (3.5-5.1); SODIUM SERUM 135 mmol/L (136-145); TRIGLYCERIDES 98 mg/dL (30-150); UREA NITROGEN, BLOOD 8 mg/dL (8-21)
[2019-05-31 08:06] LABS: GFR AFRICAN AMERICAN 134 mL/min (>90)
[2019-05-31 08:56] LABS: ACETONE, SERUM SMALL (NEGATIVE)
[2019-05-31] MEDS: CALCIUM CARBONATE 500 MG/ TAB.CHEW PO SCH ×3 (08:56→20:36)
[2019-05-31] MEDS: NAPH,MB-DB/K PH,MBDB 250 MG TAB PO SCH ×4 (08:57→20:36)
[2019-05-31] MEDS: MULTIVITS,CA,MINERALS/IRON/FA 1 TABLET PO SCH (08:57)
[2019-05-31] MEDS: CHOLECALCIFEROL (VITAMIN D3) 2,000 UNIT TABLET PO SCH (08:57)
[2019-05-31] MEDS: THIAMINE HCL 100 MG TABLET PO SCH (08:57)
[2019-05-31] MEDS: FOLIC ACID 1 MG TABLET PO SCH (08:57)
[2019-05-31] MEDS: POTASSIUM CHLORIDE 20 MEQ TAB.PRT.SR PO SCH ×2 (08:57→20:36)
[2019-05-31] MEDS: NICOTINE 21 MG/24 HR PATCH.TD24 TD SCH (08:57)
--- NOTE | 2019-05-31 10:30 | NUR ---
to CT patient taken to CT scan via wheelchair, respirations even and unlabored on room air, no acute distress noted.
--- NOTE | 2019-05-31 10:53 | NUR ---
back from CT patient brought back to room from CT scan, patient resting in bed, no acute distress noted.
[2019-05-31] MEDS: IPRATROPIUM/ALBUTEROL SULFATE 3 ML AMPUL.NEB (DUONEB) INH SCH ×4 (11:17→19:00)
[2019-05-31 13:08] VITALS: BP_SYST 102
--- NOTE | 2019-05-31 13:25 | NUR ---
Bathroom patient ambulated to bathroom, steady gait noted, voided x1, patient ambulated back to bed, patient resting in bed.
--- NOTE | 2019-05-31 14:02 | NUR ---
P.T. NOTES P.T. EVAL COMPLETED; ENDORSED TO NURSING.
--- NOTE | 2019-05-31 15:20 | NUR ---
Bathroom patient ambulated to bathroom, steady gait noted, voided x1, patient ambulated back to bed, patient resting in bed.
[2019-05-31 16:00] VITALS: BP_SYST 94
--- NOTE | 2019-05-31 17:31 | NUR ---
DR MUSHTAQ MOTLEY
--- NOTE | 2019-05-31 17:40 | NUR ---
Physician Rounds Dr. Mendes at bedside examining patient. Addendum: 05/31/19 at 1807 by Cande Melendrez RN per Dr. Mendes, clearance is needed by Dr. Joseph before discharge, Dr. Joseph has been paged, awaiting call back.
[2019-05-31] MEDS ORDERED: POTASSIUM CHLORIDE 20 MEQ TAB.PRT.SR PO ONE (17:45)
[2019-05-31] MEDS ORDERED: MAGNESIUM SULFATE 50 ML IV ONE (17:45)
--- NOTE | 2019-05-31 19:20 | NUR ---
Closing Note bedside SBAR report given to Gladys RN, patient resting in bed, respirations even and unlabored on room air, no acute distress noted, room close to nurses station, educated patient on use of call light and asked to call for assistance, patient verbalized understanding, call light in reach, educated patient on use of bed alarm for patient safety, patient refusing bed alarm, bed in low and locked position, care endorsed to looping inspector RN.
[2019-05-31 20:10] VITALS: BP_SYST 92
--- NOTE | 2019-05-31 20:10 | NUR ---
Opening notes Pt AAOx4. VSS, afebrile. No s/s distress noted. IV saline lock R. AC and R. FA 20G clear and patent. Pt ambulated to the bathroom, steady gait. Call light within reach. To monitor.
--- NOTE | 2019-05-31 20:38 | NUR ---
Blood sugar Checked 224, 4 units Humalog insulin administered per protocol. Pt given snacks per pt request. Consent signed for CT abd/pelvis with contrast. Safety maintained. To monitor.
[2019-05-31] MEDS: TEMAZEPAM 15 MG CAPSULE PO PRN (20:50)
[2019-06-01 00:04] VITALS: BP_SYST 97
--- NOTE | 2019-06-01 00:08 | NUR ---
Rounds Pt awake, no s/s distress noted. Pt refused HHN txmt per RT. Call light within reach. Safety maintained. Will continue to monitor.
--- NOTE | 2019-06-01 03:10 | NUR ---
Bathroom Pt alert, awake, no s/s distress or discomfort noted. Steady gait. Call light within reach. To monitor.
--- NOTE | 2019-06-01 05:46 | NUR ---
DR. Prem bender.
--- NOTE | 2019-06-01 06:30 | NUR ---
Closing notes PT AAOX4, blood sugar checked 199. Scheduled insulin administered as ordered, pt have snacks at bedside. IV lock R. AC and FA clear and patent. Call light within reach. All needs met throughout the shift. Pt states she wants to go home today because she has job interview. To endorse to AM nurse.
[2019-06-01] MEDS: INSULIN LISPRO SLIDING SCALE 100 UNITS/ML VIAL (humaLOG) SUBCUT PRN ×3 (06:31→18:05)
[2019-06-01] MEDS: INSULIN Lispro 100 UNITS/ML VIAL (humaLOG) SUBCUT SCH ×3 (06:31→18:04)
[2019-06-01] MEDS: INSULIN GLARGINE 100 UNITS/ML 10 ML VIAL SUBCUT SCH (06:31)
[2019-06-01 06:40] LABS: CALCIUM 8.7 mg/dL (8.4-11.0); CREATININE 0.49 mg/dL (0.55-1.30); POTASSIUM 3.6 mmol/L (3.5-5.1)
[2019-06-01] MEDS: IPRATROPIUM/ALBUTEROL SULFATE 3 ML AMPUL.NEB (DUONEB) INH SCH ×2 (07:56→11:00)
--- NOTE | 2019-06-01 08:00 | NUR ---
PT. WITH NO DISTRESS, VSS, DENIES PAIN, SR ON TELEMETRY. POSSIBLE DISCHARGE TODAY AFTER CT OF ABDOMEN. CALL LIGHT IN REACH.
[2019-06-01 08:06] VITALS: BP_SYST 95
[2019-06-01] MEDS: NAPH,MB-DB/K PH,MBDB 250 MG TAB PO SCH ×4 (08:30→18:07)
[2019-06-01] MEDS: LORazepam 2 MG/ML VIAL IVP PRN (08:40)
[2019-06-01] MEDS: FOLIC ACID 1 MG TABLET PO SCH (09:00)
[2019-06-01] MEDS: NICOTINE 21 MG/24 HR PATCH.TD24 TD SCH (09:00)
[2019-06-01] MEDS: POTASSIUM CHLORIDE 20 MEQ TAB.PRT.SR PO SCH (09:00)
[2019-06-01] MEDS: CALCIUM CARBONATE 500 MG/ TAB.CHEW PO SCH ×2 (09:00→14:38)
[2019-06-01] MEDS: THIAMINE HCL 100 MG TABLET PO SCH (09:00)
[2019-06-01] MEDS: MULTIVITS,CA,MINERALS/IRON/FA 1 TABLET PO SCH (09:00)
[2019-06-01] MEDS: CHOLECALCIFEROL (VITAMIN D3) 2,000 UNIT TABLET PO SCH (09:00)
[2019-06-01] MEDS ORDERED: GASTROGRAFIN 120 ML ONE (09:18)
[2019-06-01] MEDS ORDERED: DIATR MEGLU/DIATRIZ SOD 30 ML SOLUTION PO ONE (09:21)
--- NOTE | 2019-06-01 10:32 | NUR ---
MANAGER GOVERNMENT met with patient at bedside for Outpatient Mental Health resource. Pt states she is connected with Dr. Rolon in [place] for her psychiatric needs. Pt also states she is planning to re-join in [place] 2x a week when discharged. MANAGER GOVERNMENT encouraged pt to call [facility] for additional resources if needed.
[2019-06-01] MEDS ORDERED: IOHEXOL 100 ML IV ONE (11:23)
[2019-06-01 14:22] VITALS: BP_SYST 90
[2019-06-01] MEDS ORDERED: FOLI-43 PO (15:54)
[2019-06-01] MEDS ORDERED: THIA50TA10 PO (15:54)
[2019-06-01] MEDS ORDERED: INSU100V9 SQ (15:55)
[2019-06-01] MEDS ORDERED: INSU200I SQ (16:01)
[2019-06-01 16:12] VITALS: BP_SYST 135
[2019-06-01 16:24] VITALS: BP_SYST 105
--- NOTE | 2019-06-01 16:51 | NUR ---
DISCHARGE HOME WITH HOME HEALTH CALLED AND JANES PATEL BEADING INSTALLER TO FOLLOW ARRANGEMENT FOR HOME HEALTH FOR PATIENT IN AM EDUCATION GIVEN RE INSULIN USE, DIABETES MELLITUS, DIET, MD FOLLOW UP AND COMPLIANCE WITH DRUG REGIMEN. LIST OF RESOURCES GIVEN TO PATIENT WHO STATED SHE WILL START GOING TO [facility] MEETINGS UPON DISCHARGE
[2019-06-01] MEDS ORDERED: MILK OF MAGNESIA 30 ML UDC PO ONE (18:18)
--- NOTE | 2019-06-01 18:24 | NUR ---
PT. LEFT FOR HOME, AAOX4. ACCOMPANIED BY HER FAMILY. STEVIE KHAN'D WITH [facility] INTACT. ALL BELONGINGS ACCOUNTED FOR. EDUCATION ABOUT DM DONE AND HOME HEALTH TO BE SET UP FOR PAT. BY LINDSAY.
--- NOTE | 2019-06-02 10:46 | NUR ---
Discharge Planning: SONALI spoke to patient she had no previous home health prefrence. SONALI made her aware i would be setting home health that is contracted. SONALI faxed referral to [facility] ( [phone] p [phone]) SONALI to follow up Addendum: 06/02/19 at 1433 by Aleida Dunn DP SONALI followed up with [facility] at [facility] p [phone]) she will have credit risk review officer Addendum: 06/02/19 at 1452 by Aleida Dunn DP SONALI faxed to [facility] (f [phone] p [phone]) SONALI to follow up.
--- NOTE | 2019-06-03 16:29 | NUR ---
Late Entry Update: [facility] (p [phone]) Declined no nurse [facility] ([phone]) Declined no reason given DCP to fax to other home health that are contracted. Addendum: 06/03/19 at 1643 by Aleida Dunn DP DCP faxed referral [facility] (f [phone]) Emmanuel Hernandez (f [phone]) Brian Dalton (f [phone]) [facility] (f [phone]) [facility] ([phone]) DCP to follow up
== END 2019-06-01 18:15 | disposition home health service (06) | DRG 637 ==
LOC: SED 16:20 → SIC 19:18 → SED 20:13 → SIC 20:13 → STU 05-28 17:59
PROVIDERS: ADMIT Internal Medicine; ATTEND Internal Medicine
DX: E11.10 Type 2 diabetes mellitus with ketoacidosis without coma (principal); N17.0 Acute kidney failure with tubular necrosis; K85.20 Alcohol induced acute pancreatitis without necrosis or infection; G93.41 Metabolic encephalopathy; R65.10 Systemic inflammatory response syndrome (SIRS) of non-infectious origin without acute organ dysfunction; E44.1 Mild protein-calorie malnutrition; E78.5 Hyperlipidemia, unspecified; F10.10 Alcohol abuse, uncomplicated; E87.6 Hypokalemia; F17.210 Nicotine dependence, cigarettes, uncomplicated; E83.39 Other disorders of phosphorus metabolism; E83.51 Hypocalcemia; G31.9 Degenerative disease of nervous system, unspecified; E11.42 Type 2 diabetes mellitus with diabetic polyneuropathy; F32.9 Major depressive disorder, single episode, unspecified; Z91.19 Patient's noncompliance with other medical treatment and regimen; Z79.899 Other long term (current) drug therapy; Z79.4 Long term (current) use of insulin; Z68.21 Body mass index [BMI] 21.0-21.9, adult
CPT/HCPCS: 36415; 36600; 70450-TC; 71045; 76700-TC; 80048; 80053; 80061; 80307; 81000-TC; 82009-TC; 82140-TC; 82803-TC; 82962; 83036; 83605; 83690-TC; 83735-TC; 83880; 84100-TC; 84439; 84443-TC; 84484; 85025; 85610-TC; 86710; 87040-TC; 87081; 93005; 93306; 94002; 94640; 94760; 96361; 96365; 96375; 99285; G0378; G0482; J0696; J1815; J1956; J2060; J3411; J3475; J3480; J7030; J7050; J7060; J7120; Q9963; Q9964; Q9967